=== PATIENT | male | born 1930 | race Hispanic/Latino ===

== ENCOUNTER → 2019-03-08 | Outpatient (CLI) | payer OTHER, MEDICARE ==
[~2019-03-08] MED LIST: CARV25TA PO; CLOP75TA32 PO; ENAL20TA PO; HYDR100T27 PO; INSLAN SQ; INSU100V IV; OLME40TA8 PO; SIMV40TA59 PO; TAMS0.4C32 PO
== END | disposition home or self-care (01) ==
LOC: OIH 15:57
PROVIDERS: ATTEND Family Medicine
DX: I11.9 Hypertensive heart disease without heart failure (principal); I70.0 Atherosclerosis of aorta; M47.815 Spondylosis without myelopathy or radiculopathy, thoracolumbar region
CPT/HCPCS: 71046